=== PATIENT | male | born 1980 | race Caucasian/White ===

== ENCOUNTER 2023-02-17 08:42 | Day surgery (SDC) | payer OTHER ==
[~2023-02-17] VITALS: Ht 175.3 cm; Wt 95.2 kg
[2023-02-17] MEDS ORDERED: ATOR80 (09:32)
[2023-02-17] MEDS ORDERED: NEBI5 (09:33)
[2023-02-17] MEDS ORDERED: LISI20 (09:33)
[2023-02-17 11:23] VITALS: BP 120/94
--- NOTE | 2023-02-17 11:24 | NUR ---
02/17/23 1124 Mary Sanchez IV DC'D, CATH INTACT. PT TOLERATED WELL. COBAN AND GAUZE IN PLACE
== END 2023-02-17 11:25 | disposition home or self-care (01) ==
LOC: ORSCSDS 08:42
PROVIDERS: Internal Medicine Gastroenterology
PROC: 0DBE8ZX Excision of Large Intestine, Via Natural or Artificial Opening Endoscopic, Diagnostic (ICD-10-PCS; principal; 2023-02-17 10:00)
PROC: 0DB98ZX Excision of Duodenum, Via Natural or Artificial Opening Endoscopic, Diagnostic (ICD-10-PCS; principal; 2023-02-17 10:00)
PROC: 0DB68ZX Excision of Stomach, Via Natural or Artificial Opening Endoscopic, Diagnostic (ICD-10-PCS; principal; 2023-02-17 10:00)
DX: R19.7 Diarrhea, unspecified (principal); R10.13 Epigastric pain; K29.50 Unspecified chronic gastritis without bleeding; R14.0 Abdominal distension (gaseous); I10 Essential (primary) hypertension; R79.89 Other specified abnormal findings of blood chemistry; K57.30 Diverticulosis of large intestine without perforation or abscess without bleeding; Z68.31 Body mass index [BMI] 31.0-31.9, adult; K64.4 Residual hemorrhoidal skin tags; Z79.899 Other long term (current) drug therapy
CPT/HCPCS: 88305; 88342; J2001; J2704; J7120

== ENCOUNTER 2023-10-24 08:34 | Emergency (ER) | payer BC ==
[~2023-10-24] VITALS: Ht 175.3 cm; Wt 95.2 kg
[~2023-10-24 08:34] MED LIST: ATOR80; LISI20; NEBI5
[2023-10-24 10:50] LABS: Albumin, Blood 3.8 g/dL (3.4-5.0); BASOPHILS ABSOLUTE AUTO 0.05 K/mm3 (0.00-0.23); BASOPHILS PERCENT AUTO 1 % (0-2); Bilirubin, Total 1.2 mg/dL (0.1-1.0); Bun/Creatinine Ratio 17.8 (12.0-20.0); Calcium, Blood 9.6 mg/dL (8.5-10.1); Creatinine, Blood 0.96 mg/dL (0.60-1.20); EOSINOPHILS ABSOLUTE AUTO 0.03 K/mm3 (0.00-0.68); EOSINOPHILS PERCENT AUTO 1 % (0-6); Hemoglobin 16.7 g/dL (13.5-17.5); IMMATURE GRAN ABSOLUTE AUTO 0.02 K/mm3 (0.00-0.10); IMMATURE GRAN PERCENT AUTO 0 % (0-1); LYMPHOCYTES ABSOLUTE AUTO 2.03 K/mm3 (0.84-5.20); LYMPHOCYTES PERCENT AUTO 36 % (21-46); MONOCYTES ABSOLUTE AUTO 0.49 K/mm3 (0.16-1.47); MONOCYTES PERCENT AUTO 9 % (4-13); Mean Corpuscular HGB 33.9 pg (26.0-34.0); Mean Corpuscular Volume 92 fL (80-100); Mean Platelet Volume 11.8 fL (9.1-12.4); NEUTROPHILS ABSOLUTE AUTO 3.04 K/mm3 (1.96-9.15); NEUTROPHILS PERCENT AUTO 54 % (41-73); Platelet Count 162 K/mm3 (150-400); Potassium, Blood 4.8 mmol/L (3.5-5.5); RDW Coefficient Variation 13.8 % (11.7-14.2); RDW Standard Deviation 46.9 fL (35.1-46.3); Red Blood Cell Count 4.92 M/mm3 (4.30-5.90); Total Protein, Blood 7.8 g/dL (6.4-8.2); White Blood Cell Count 5.66 K/mm3 (4.00-11.30)
[2023-10-24] MEDS ORDERED: NS 1,000 ML IV SCH (10:50)
[2023-10-24] MEDS ORDERED: Ketorolac Tromethamine 30mg Vial IV ONE (10:55)
[2023-10-24] MEDS ORDERED: Ondansetron HCl 2 MG / ML 2ML Vial IV ONE (10:55)
[2023-10-24 10:56] LABS: Mean Corpuscular HGB Conc 37.1 g/dL (31.5-36.5)
[2023-10-24] MEDS ORDERED: Amoxicillin 500 MG Cap PO ONE (11:00)
[2023-10-24 11:40] LABS: Influenza A, PCR NEGATIVE (NEGATIVE); Influenza B, PCR NEGATIVE (NEGATIVE); Resp Syncytial Virus, PCR NEGATIVE (NEGATIVE); SARS-Cov-2 (COVID-19) PCR, MMC NEGATIVE (NEGATIVE)
[2023-10-24] MEDS ORDERED: AMOX500 PO (13:09)
[2023-10-24 13:40] VITALS: BP 143/102
== END 2023-10-24 13:40 | disposition home or self-care (01) ==
LOC: ER 08:34
PROVIDERS: Student in an Organized Health Care Education/Training Program
DX: J18.0 Bronchopneumonia, unspecified organism (principal); K70.10 Alcoholic hepatitis without ascites; I10 Essential (primary) hypertension; E78.5 Hyperlipidemia, unspecified; F10.90 Alcohol use, unspecified, uncomplicated; R74.01 Elevation of levels of liver transaminase levels; E78.00 Pure hypercholesterolemia, unspecified
CPT/HCPCS: 0241U; 71046; 80053; 84145; 84484; 85025; 93005; 93010; 96374; 96375; 99285-25; A9270; J1885; J2405; J7030